=== PATIENT | female | born 1950 | race Two or more races ===

== ENCOUNTER 2022-02-09 01:49 | Emergency (ER) | payer OTHER ==
[2022-02-09] MEDS ORDERED: KETOROLAC TROMETHAMINE 30 MG/1 ML VIAL IM ONE (02:14)
[2022-02-09 02:16] VITALS: BMI 29.2
[2022-02-09] MEDS ORDERED: PROPOFOL 20 ML ONE (03:16)
[2022-02-09] MEDS ORDERED: PROPOFOL 200 MG/20 ML VIAL IVPUSH ONE (03:36)
[2022-02-09] MEDS ORDERED: PROPOFOL 1,000,000 MCG/100 ML VIAL ONE (03:36)
[2022-02-09] MEDS ORDERED: SODIUM CHLORIDE 0.9% 500 ML INFUS.BAG IV ONE (03:40)
[2022-02-09] MEDS ORDERED: ACETAMINOPHEN 1000 MG/100 ML BAG IVPB ONE (03:40)
[2022-02-09] MEDS ORDERED: ACETAMINOPHEN INJECTION 100 ML IVPB ONE (05:37)
[2022-02-09 06:17] VITALS: BP 154/88; PULSE 69; TEMP 98.2
== END 2022-02-09 06:27 | disposition home or self-care (01) ==
LOC: JER 01:49
PROC: 3E0333Z Introduction of Anti-inflammatory into Peripheral Vein, Percutaneous Approach (ICD-10-PCS; principal; 2022-02-09)
PROC: 3E033GC Introduction of Other Therapeutic Substance into Peripheral Vein, Percutaneous Approach (ICD-10-PCS; 2022-02-09)
PROC: 3E0233Z Introduction of Anti-inflammatory into Muscle, Percutaneous Approach (ICD-10-PCS; 2022-02-09)
DX: S43.004A Unspecified dislocation of right shoulder joint, initial encounter (principal); W01.0XXA Fall on same level from slipping, tripping and stumbling without subsequent striking against object, initial encounter
CPT/HCPCS: 71045-TC-FY; 73030-TC-RT-FY; 73060-TC-RT-FY; 99283-25